=== PATIENT | male | born 1980 | race Caucasian/White ===

== ENCOUNTER 2024-10-05 17:18 | Inpatient (IN) | payer BC ==
[2024-10-05 17:40] VITALS: BMI 21.5
[2024-10-05] MEDS ORDERED: BENZONATATE 200 MG CAPSULE PO PRN (19:50)
[2024-10-05] MEDS ORDERED: POLYETHYLENE GLYCOL (HEALTHYLAX) 3350 17 GM PACKET PO PRN (19:50)
[2024-10-05] MEDS ORDERED: MAG HYDROX/AL HYDROX/SIMETH 30 ML UNIT-DOSE CUP PO PRN (19:50)
[2024-10-05] MEDS ORDERED: MAGNESIUM HYDROX 2400MG/30ML ORAL SUSPENSION 30 ML CUP PO PRN (19:50)
[2024-10-05] MEDS ORDERED: LOPERAMIDE HCL 2 MG CAPSULE PO PRN (19:50)
[2024-10-05] MEDS ORDERED: guaiFENesin 600 MG TABLET.ER (FP) PO PRN (19:50)
[2024-10-05] MEDS ORDERED: ACETAMINOPHEN 325 MG TABLET (FP) PO PRN (19:50)
[2024-10-05] MEDS ORDERED: BISMUTH SUBSALICYLATE 524 MG/30 ML PO PRN (19:50)
[2024-10-05] MEDS ORDERED: ONDANSETRON *ODT* 4 MG TABLET SL PRN (19:50)
[2024-10-05] MEDS ORDERED: IBUPROFEN 600 MG TABLET (FP) PO PRN (19:50)
[2024-10-05] MEDS ORDERED: DICYCLOMINE HCL 10 MG CAPSULE PO PRN (19:50)
[2024-10-05] MEDS ORDERED: IBUPROFEN 400 MG TABLET (FP) PO PRN (19:50)
[2024-10-05] MEDS: chlordiazePOXIDE HCL 25 MG CAPSULE PO ONE (20:35)
[2024-10-05] MEDS: chlordiazePOXIDE HCL 25 MG CAPSULE PO SCH (23:03)
[2024-10-05] MEDS: MELATONIN 5 MG TABLETS PO SCH (23:04)
[2024-10-05] MEDS: THIAMINE 100 MG TABLET PO SCH (23:04)
[2024-10-06] MEDS: METHOCARBAMOL 500 MG TABLET PO PRN (01:14)
[2024-10-06] MEDS: chlordiazePOXIDE HCL 25 MG CAPSULE PO PRN (01:15)
[2024-10-06] MEDS: ESCITALOPRAM OXALATE 10 MG TABLET PO SCH (10:43)
[2024-10-06] MEDS: PRENATAL VITAMINS W/ FOLIC ACID TABLET (FP) PO SCH (10:43)
[2024-10-06 14:25] LABS: HEMATOCRIT 40.7 % (35.4-49); HEMOGLOBIN 13.8 GM/dL (11.7-16.9); MCH 34.2 pg (25.7-33.7); MCHC 33.9 g/dl (32.0-35.9); MEAN PLT VOLUME 7.5 fl (7.5-11.1); PLATELET COUNT 267 10^3/uL (134-434); RBC 4.03 M/mm3 (4.00-5.60); RDW 14.1 % (11.9-15.9); WHITE BLOOD COUNT 5.2 K/mm3 (4.0-10.0)
[2024-10-06 14:52] LABS: POTASSIUM 3.9 mmol/L (3.5-5.1)
[2024-10-06 14:54] LABS: CALCIUM 9.2 mg/dL (8.5-10.1)
[2024-10-06 14:55] LABS: ALBUMIN 3.7 g/dl (3.4-5.0); BLOOD UREA NITROGEN 13.4 mg/dL (7-18)
[2024-10-06 14:58] LABS: CREATININE 0.9 mg/dL (0.55-1.3)
[2024-10-06 15:00] LABS: BILIRUBIN,TOTAL 0.7 mg/dL (0.2-1); TOT PROT 6.4 g/dl (6.4-8.2)
[2024-10-06] MEDS: hydrOXYzine PAMOATE 25 MG CAPSULE (FP) PO PRN (22:12)
[2024-10-07] MEDS: chlordiazePOXIDE HCL 25 MG CAPSULE PO SCH (05:42)
[2024-10-08] MEDS ORDERED: chlordiazePOXIDE HCL 10 MG CAPSULE PO PRN
[2024-10-08] MEDS: chlordiazePOXIDE HCL 10 MG CAPSULE PO SCH (05:55)
[2024-10-08] MEDS ORDERED: guaiFENesin 200 MG/10 ML 10 ML UNIT-DOSE CUPS PO PRN (10:03)
[2024-10-08] MEDS: P-EPHED 60MG/TRIPROLIDI 2.5MG TABLET PO PRN (10:30)
[2024-10-08] MEDS: BENZOCAINE/MENTHOL (CHLORASEPTIC ) LOZENGE MM PRN (10:30)
[2024-10-08 13:15] VITALS: PULSE 80; RESP 16
[2024-10-08] MEDS ORDERED: NALOXONE (NYS OPIOID OVERDOSE PROGRAM) 4 MG/0.1 ML SPRAY NS ONE (16:00)
[2024-10-08 16:31] VITALS: BP 113/68; TEMP 98
[2024-10-09] MEDS ORDERED: chlordiazePOXIDE HCL 10 MG CAPSULE PO SCH (05:00)
[2024-10-10] MEDS ORDERED: chlordiazePOXIDE HCL 10 MG CAPSULE PO ONE (05:00)
== END 2024-10-08 16:53 | disposition home or self-care (01) | DRG 775 ==
LOC: YASAS 17:18 → Y3N 20:18
PROVIDERS: ADMIT Allergy & Immunology; ATTEND Surgery
PROC: HZ2ZZZZ Detoxification Services for Substance Abuse Treatment (ICD-10-PCS; principal; 2024-10-05)
DX: F10.230 Alcohol dependence with withdrawal, uncomplicated (principal); F12.20 Cannabis dependence, uncomplicated; F17.210 Nicotine dependence, cigarettes, uncomplicated; F10.282 Alcohol dependence with alcohol-induced sleep disorder; F32.A Depression, unspecified; J06.9 Acute upper respiratory infection, unspecified; R74.01 Elevation of levels of liver transaminase levels
CPT/HCPCS: 36415; 80053; 80305; 80307; 85027; 86780; 93005; 93010

== ENCOUNTER 2024-11-04 17:52 | Inpatient (IN) | payer BC ==
[2024-11-04 18:08] VITALS: BMI 23.6
[2024-11-04] MEDS ORDERED: NALOXONE (NARCAN) HCL 4 MG/0.1 ML SPRAY NS PRN (19:15)
[2024-11-04] MEDS ORDERED: guaiFENesin 600 MG TABLET.ER (FP) PO PRN (19:15)
[2024-11-04] MEDS ORDERED: IBUPROFEN 600 MG TABLET (FP) PO PRN (19:15)
[2024-11-04] MEDS ORDERED: BENZONATATE 200 MG CAPSULE PO PRN (19:15)
[2024-11-04] MEDS ORDERED: MAGNESIUM HYDROX 2400MG/30ML ORAL SUSPENSION 30 ML CUP PO PRN (19:15)
[2024-11-04] MEDS ORDERED: BENZOCAINE/MENTHOL (CHLORASEPTIC ) LOZENGE MM PRN (19:15)
[2024-11-04] MEDS ORDERED: POLYETHYLENE GLYCOL (HEALTHYLAX) 3350 17 GM PACKET PO PRN (19:15)
[2024-11-04] MEDS ORDERED: ACETAMINOPHEN 325 MG TABLET (FP) PO PRN (19:15)
[2024-11-04] MEDS ORDERED: MAG HYDROX/AL HYDROX/SIMETH 30 ML UNIT-DOSE CUP PO PRN (19:15)
[2024-11-04] MEDS ORDERED: DICYCLOMINE HCL 10 MG CAPSULE PO PRN (19:15)
[2024-11-04] MEDS ORDERED: ONDANSETRON *ODT* 4 MG TABLET SL PRN (19:15)
[2024-11-04] MEDS ORDERED: IBUPROFEN 400 MG TABLET (FP) PO PRN (19:15)
[2024-11-04] MEDS: hydrOXYzine PAMOATE 25 MG CAPSULE (FP) PO PRN (21:27)
[2024-11-04] MEDS: METHOCARBAMOL 500 MG TABLET PO PRN (21:27)
[2024-11-04] MEDS: MELATONIN 5 MG TABLETS PO SCH (22:21)
[2024-11-04] MEDS: THIAMINE 100 MG TABLET PO SCH (22:22)
[2024-11-04] MEDS: diazePAM 5 MG TABLET PO SCH (22:23)
[2024-11-05] MEDS: diazePAM 5 MG TABLET PO PRN (01:04)
[2024-11-05] MEDS: PRENATAL VITAMINS W/ FOLIC ACID TABLET (FP) PO SCH (10:55)
[2024-11-05 13:54] LABS: HEMOGLOBIN 14.5 GM/dL (11.7-16.9); MCH 33.5 pg (25.7-33.7); MCHC 33.6 g/dl (32.0-35.9); MEAN CELL VOLUME 99.8 fl (80-96); MEAN PLT VOLUME 7.8 fl (7.5-11.1); PLATELET COUNT 167 10^3/uL (134-434); RBC 4.31 M/mm3 (4.00-5.60); RDW 13.5 % (11.9-15.9); WHITE BLOOD COUNT 4.4 K/mm3 (4.0-10.0)
[2024-11-05 13:55] LABS: CHLORIDE 101 mmol/L (98-107); POTASSIUM 3.2 mmol/L (3.5-5.1); SODIUM 138 mmol/L (136-145)
[2024-11-05 13:58] LABS: ALBUMIN 3.8 g/dl (3.4-5.0); ANION GAP 6 mmol/L (4-13); BLOOD UREA NITROGEN 7.5 mg/dL (7-18); CALCIUM 9.6 mg/dL (8.5-10.1); CO2 31 mmol/L (21-32); GLUCOSE,RANDOM 111 mg/dL (74-106)
[2024-11-05 14:01] LABS: CREATININE 0.8 mg/dL (0.55-1.3); SGPT/ALT 53 U/L (13-61)
[2024-11-05 14:02] LABS: SGOT/AST 49 U/L (15-37)
[2024-11-05 14:03] LABS: BILIRUBIN,TOTAL 0.8 mg/dL (0.2-1)
[2024-11-05 14:04] LABS: ALK PHOS 93 U/L (45-117); TOT PROT 6.5 g/dl (6.4-8.2)
[2024-11-05 14:54] LABS: HIV INTERPRETATION NEGATIVE (NEGATIVE)
[2024-11-05] MEDS: SUVOREXANT 10 MG TABLET PO PRN (22:23)
[2024-11-06] MEDS: LOPERAMIDE HCL 2 MG CAPSULE PO PRN (01:17)
[2024-11-06] MEDS: BISMUTH SUBSALICYLATE 524 MG/30 ML PO PRN (01:17)
[2024-11-06] MEDS: diazePAM 5 MG TABLET PO SCH (06:09)
[2024-11-06] MEDS: POTASSIUM CHLORIDE ORAL LIQUID 20 MEQ/15 ML PO ONE (09:16)
[2024-11-06 17:21] LABS: URINE APPEARANCE CLEAR; URINE BILIRUBIN NEGATIVE (NEGATIVE); URINE COLOR YELLOW; URINE GLUCOSE (UA) NEGATIVE (NEGATIVE); URINE KETONE NEGATIVE (NEGATIVE); URINE LEUK ESTERASE NEGATIVE (NEGATIVE); URINE NITRITE NEGATIVE (NEGATIVE); URINE PROTEIN NEGATIVE (NEGATIVE); URINE UROBILINOGEN 0.2 mg/dL (0.2-1.0)
[2024-11-07] MEDS: diazePAM 5 MG TABLET PO SCH (05:16)
[2024-11-07] MEDS: diazePAM 5 MG TABLET PO ONE (23:06)
[2024-11-08] MEDS ORDERED: diazePAM 5 MG TABLET PO ONE (06:00)
[2024-11-08] MEDS: NALOXONE (NYS OPIOID OVERDOSE PROGRAM) 4 MG/0.1 ML SPRAY NS SCH (08:55)
[2024-11-08 09:04] VITALS: BP 116/86; PULSE 95; RESP 16; TEMP 97.7
[2024-11-08 11:11] LABS: CALCIUM 9.2 mg/dL (8.5-10.1)
[2024-11-08 11:12] LABS: BLOOD UREA NITROGEN 9.5 mg/dL (7-18)
[2024-11-08 11:15] LABS: CREATININE 0.8 mg/dL (0.55-1.3)
== END 2024-11-08 11:05 | disposition home or self-care (01) | DRG 775 ==
LOC: YASAS 17:52 → Y3N 20:26
PROVIDERS: ADMIT Allergy & Immunology; ATTEND Surgery
PROC: HZ2ZZZZ Detoxification Services for Substance Abuse Treatment (ICD-10-PCS; principal; 2024-11-04)
DX: F10.230 Alcohol dependence with withdrawal, uncomplicated (principal); F12.10 Cannabis abuse, uncomplicated; F10.282 Alcohol dependence with alcohol-induced sleep disorder; F32.A Depression, unspecified; E87.6 Hypokalemia; E86.0 Dehydration; R58 Hemorrhage, not elsewhere classified
CPT/HCPCS: 36415; 80048; 80053; 80307; 81003; 85027; 86780; 87389; 93005; 93010

== ENCOUNTER 2025-01-14 20:21 | Inpatient (IN) | payer BC ==
[2025-01-14 20:46] VITALS: BMI 24.4
[2025-01-14] MEDS ORDERED: diazePAM 5 MG TABLET PO PRN (21:06)
[2025-01-14] MEDS ORDERED: guaiFENesin 600 MG TABLET.ER (FP) PO PRN (21:15)
[2025-01-14] MEDS ORDERED: MAG HYDROX/AL HYDROX/SIMETH 30 ML UNIT-DOSE CUP PO PRN (21:15)
[2025-01-14] MEDS ORDERED: BISMUTH SUBSALICYLATE 524 MG/30 ML PO PRN (21:15)
[2025-01-14] MEDS ORDERED: NALOXONE (NARCAN) HCL 4 MG/0.1 ML SPRAY NS PRN (21:15)
[2025-01-14] MEDS ORDERED: IBUPROFEN 400 MG TABLET (FP) PO PRN (21:15)
[2025-01-14] MEDS ORDERED: BENZONATATE 200 MG CAPSULE PO PRN (21:15)
[2025-01-14] MEDS ORDERED: NICOTINE POLACRILEX 2 MG LOZENGE BC PRN (21:15)
[2025-01-14] MEDS ORDERED: NICOTINE POLACRILEX 2 MG GUM BUC PRN (21:15)
[2025-01-14] MEDS ORDERED: ACETAMINOPHEN 325 MG TABLET (FP) PO PRN (21:15)
[2025-01-14] MEDS ORDERED: BENZOCAINE/MENTHOL (CHLORASEPTIC ) LOZENGE MM PRN (21:15)
[2025-01-14] MEDS ORDERED: IBUPROFEN 600 MG TABLET (FP) PO PRN (21:15)
[2025-01-14] MEDS ORDERED: LOPERAMIDE HCL 2 MG CAPSULE PO PRN (21:15)
[2025-01-14] MEDS ORDERED: POLYETHYLENE GLYCOL (HEALTHYLAX) 3350 17 GM PACKET PO PRN (21:15)
[2025-01-14] MEDS ORDERED: ONDANSETRON *ODT* 4 MG TABLET SL PRN (21:15)
[2025-01-14] MEDS ORDERED: DICYCLOMINE HCL 10 MG CAPSULE PO PRN (21:15)
[2025-01-14] MEDS ORDERED: MAGNESIUM HYDROX 2400MG/30ML ORAL SUSPENSION 30 ML CUP PO PRN (21:15)
[2025-01-14] MEDS ORDERED: METHOCARBAMOL 500 MG TABLET PO PRN (21:15)
[2025-01-14] MEDS ORDERED: diazePAM 5 MG TABLET ONE (22:19)
[2025-01-14] MEDS ORDERED: MELATONIN 5 MG TABLETS ONE (22:19)
[2025-01-14] MEDS ORDERED: propRANOLol HCL 10 MG TABLET ONE (22:20)
[2025-01-14] MEDS: MELATONIN 5 MG TABLETS PO SCH (22:27)
[2025-01-14] MEDS: propRANOLol HCL 10 MG TABLET PO ONE (22:27)
[2025-01-14] MEDS: diazePAM 5 MG TABLET PO SCH (22:28)
[2025-01-14] MEDS: THIAMINE 100 MG TABLET PO SCH (22:28)
[2025-01-15] MEDS: PRENATAL VITAMINS W/ FOLIC ACID TABLET (FP) PO SCH (10:45)
[2025-01-15 11:40] LABS: HEMATOCRIT 36.7 % (35.4-49); HEMOGLOBIN 12.1 GM/dL (11.7-16.9); MCH 32.8 pg (25.7-33.7); MEAN CELL VOLUME 99.2 fl (80-96); MEAN PLT VOLUME 7.7 fl (7.5-11.1); PLATELET COUNT 228 10^3/uL (134-434); RDW 13.8 % (11.9-15.9)
[2025-01-15 12:09] LABS: POTASSIUM 3.5 mmol/L (3.5-5.1)
[2025-01-15 12:10] VITALS: BP 132/82; PULSE 81; RESP 16; TEMP 98
[2025-01-15 12:11] LABS: ALBUMIN 3.2 g/dl (3.4-5.0); BLOOD UREA NITROGEN 11.6 mg/dL (7-18); CALCIUM 8.6 mg/dL (8.5-10.1)
[2025-01-15 12:14] LABS: CREATININE 0.9 mg/dL (0.55-1.3)
[2025-01-15 12:16] LABS: BILIRUBIN,TOTAL 0.3 mg/dL (0.2-1); TOT PROT 6.5 g/dl (6.4-8.2)
[2025-01-16] MEDS ORDERED: diazePAM 5 MG TABLET PO SCH (06:00)
[2025-01-17] MEDS ORDERED: diazePAM 5 MG TABLET PO SCH (06:00)
[2025-01-18] MEDS ORDERED: diazePAM 5 MG TABLET PO ONE (06:00)
== END 2025-01-15 14:24 | disposition left against medical advice (07) | DRG 770 ==
LOC: YASAS 20:21 → Y3N 21:53
PROVIDERS: ADMIT Allergy & Immunology; ATTEND Allergy & Immunology
PROC: HZ2ZZZZ Detoxification Services for Substance Abuse Treatment (ICD-10-PCS; principal; 2025-01-14)
DX: F10.230 Alcohol dependence with withdrawal, uncomplicated (principal); F17.210 Nicotine dependence, cigarettes, uncomplicated; F32.A Depression, unspecified
CPT/HCPCS: 36415; 80053; 80305; 80307; 85027; 86780

== ENCOUNTER 2025-01-16 23:44 | Inpatient (IN) | payer BC ==
[2025-01-17 00:34] VITALS: BMI 23.1
[2025-01-17] MEDS ORDERED: BENZONATATE 200 MG CAPSULE PO PRN (01:17)
[2025-01-17] MEDS ORDERED: BISMUTH SUBSALICYLATE 524 MG/30 ML PO PRN (01:17)
[2025-01-17] MEDS ORDERED: POLYETHYLENE GLYCOL (HEALTHYLAX) 3350 17 GM PACKET PO PRN (01:17)
[2025-01-17] MEDS ORDERED: ACETAMINOPHEN 325 MG TABLET (FP) PO PRN (01:17)
[2025-01-17] MEDS ORDERED: IBUPROFEN 400 MG TABLET (FP) PO PRN (01:17)
[2025-01-17] MEDS ORDERED: BENZOCAINE/MENTHOL (CHLORASEPTIC ) LOZENGE MM PRN (01:17)
[2025-01-17] MEDS ORDERED: MAG HYDROX/AL HYDROX/SIMETH 30 ML UNIT-DOSE CUP PO PRN (01:17)
[2025-01-17] MEDS ORDERED: LOPERAMIDE HCL 2 MG CAPSULE PO PRN (01:17)
[2025-01-17] MEDS ORDERED: METHOCARBAMOL 500 MG TABLET PO PRN (01:17)
[2025-01-17] MEDS ORDERED: NALOXONE (NARCAN) HCL 4 MG/0.1 ML SPRAY NS PRN (01:17)
[2025-01-17] MEDS ORDERED: DICYCLOMINE HCL 10 MG CAPSULE PO PRN (01:17)
[2025-01-17] MEDS ORDERED: hydrOXYzine PAMOATE 25 MG CAPSULE (FP) PO PRN (01:17)
[2025-01-17] MEDS ORDERED: IBUPROFEN 600 MG TABLET (FP) PO PRN (01:17)
[2025-01-17] MEDS ORDERED: MAGNESIUM HYDROX 2400MG/30ML ORAL SUSPENSION 30 ML CUP PO PRN (01:17)
[2025-01-17] MEDS ORDERED: ONDANSETRON *ODT* 4 MG TABLET SL PRN (01:17)
[2025-01-17] MEDS ORDERED: guaiFENesin 600 MG TABLET.ER (FP) PO PRN (01:17)
[2025-01-17 09:20] VITALS: BP 125/76; PULSE 84; RESP 18; TEMP 97.5
[2025-01-17] MEDS: PRENATAL VITAMINS W/ FOLIC ACID TABLET (FP) PO SCH (10:27)
[2025-01-17] MEDS ORDERED: THIAMINE 100 MG TABLET PO SCH (22:00)
[2025-01-17] MEDS ORDERED: MELATONIN 5 MG TABLETS PO SCH (22:00)
== END 2025-01-17 12:50 | disposition left against medical advice (07) | DRG 770 ==
LOC: YASAS 23:44 → Y6N 01-17 02:22
PROVIDERS: ADMIT Allergy & Immunology; ATTEND Allergy & Immunology
PROC: HZ2ZZZZ Detoxification Services for Substance Abuse Treatment (ICD-10-PCS; principal; 2025-01-17)
DX: F10.20 Alcohol dependence, uncomplicated (principal); F12.10 Cannabis abuse, uncomplicated; F10.282 Alcohol dependence with alcohol-induced sleep disorder; F10.24 Alcohol dependence with alcohol-induced mood disorder; F31.9 Bipolar disorder, unspecified; F91.8 Other conduct disorders; Z91.199 Patient's noncompliance with other medical treatment and regimen due to unspecified reason
CPT/HCPCS: 80305; 93005; 93010